=== PATIENT | female | born 1955 | race Caucasian/White ===

== ENCOUNTER 2017-10-20 11:19 | Emergency (ER) | payer OTHER ==
[2009-09-08 07:12] VITALS: BMI 28.8
== END 2017-10-20 12:53 | disposition home or self-care (01) ==
LOC: D.ER 11:19
DX: L03.211 Cellulitis of face (principal)

== ENCOUNTER → 2018-02-01 07:33 | Outpatient (CLI) | payer OTHER ==
[2009-09-08 07:12] VITALS: BMI 28.8
== END | disposition home or self-care (01) ==
LOC: D.NM 07:33
DX: K80.20 Calculus of gallbladder without cholecystitis without obstruction (principal)

== ENCOUNTER → 2018-04-23 17:51 | Outpatient (CLI) | payer OTHER ==
[2009-09-08 07:12] VITALS: BMI 28.8
== END | disposition home or self-care (01) ==
LOC: D.MAMMO 08:00
DX: Z12.31 Encounter for screening mammogram for malignant neoplasm of breast (principal)

== ENCOUNTER → 2018-07-23 19:51 | Outpatient (CLI) | payer OTHER ==
[2009-09-08 07:12] VITALS: BMI 28.8
== END | disposition home or self-care (01) ==
LOC: D.MAMMO 08:30
DX: R92.8 Other abnormal and inconclusive findings on diagnostic imaging of breast (principal)

== ENCOUNTER 2020-04-16 12:30 | Emergency (ER) | payer OTHER ==
[~2020-04-16] VITALS: Ht 157.5 cm; Wt 61.4 kg
[2020-04-16 13:15] VITALS: Ht 157.5 cm; Wt 61.4 kg
[2020-04-16] MEDS ORDERED: NAPROSYN500 MG PO (15:06)
[2020-04-16] MEDS ORDERED: BACLOFEN20 M1 PO (15:06)
[2020-04-16 15:35] VITALS: BP 128/72
== END 2020-04-16 15:36 | disposition home or self-care (01) ==
LOC: D.ER 12:30
DX: M25.511 Pain in right shoulder (principal); S46.911A Strain of unspecified muscle, fascia and tendon at shoulder and upper arm level, right arm, initial encounter; E03.9 Hypothyroidism, unspecified; X50.0XXA Overexertion from strenuous movement or load, initial encounter; Y93.9 Activity, unspecified; Y92.9 Unspecified place or not applicable